=== PATIENT | male | born 1985 | race Caucasian/White ===

== ENCOUNTER 2016-07-18 08:45 | Emergency (ER) | payer BC ==
[2016-07-18 09:08] VITALS: BP 134/91
--- NOTE | 2016-07-18 10:21 | UC ---
Headache HPI - History Of Current Complaint Chief Complaint: Jose Luis Stated Complaint: HEADACHE Hx Obtained From: Patient Onset/Duration: Sudden Onset - awoke 3 days ago with subtle L sided headaceh: on L side of face, behind L eye, worse if bends forward to lift anything, had dark nasal drainage 1-2 days ago. headache is relieved by OTC ibuprofen. Has not gotten worse. no toothace. denies rececnt injury Currently Pain Is: Current Pain Scale(0-10)= - 3/10 pain Timing: Intermittent, Lasting: - variable amounts of time Character: Throbbing, Pressure Location of Headache: Other: - L side face and L side forehead Aggravating Factor: Other - bending forward, moving around Allevating Factors: Medication - OTC ibuprofen Associated Signs And Symptoms: Positive: Sinus Pressure. Negative: Dizziness, Nausea, Neck Pain, Neck Stiffness, Decreased LOC, Visual Changes - Risk Factors SAH Risk Factors: Negative Meningitis Risk Factors: Negative - Allergies/Home Medications Allergies/Adverse Reactions: Allergies Allergy/AdvReac Type Severity Reaction Status Date / Time No Known Allergies Allergy Verified 07/27/15 12:33 PMH/Surg Hx/FS Hx/Imm Hx Previously Healthy: Yes Endocrine History Of: Denies: Diabetes, Thyroid Disease Cardiovascular History Of: Denies: Cardiac Disorders, Hypertension Respiratory History Of: Denies: COPD, Asthma GI/ History Of: Denies: Ulcer - Surgical History Surgical History: Yes Surgery Procedure, Year, and Place: [place] Teeth extraction Left upper and lower - Family History Known Family History: Positive: Hypertension, Other - denies hx brain aneurysm or other neuro probs - Social History Occupation: Employed Full-time - grocery store Lives: With Family Alcohol Use: Occasionally Alcohol Amount: 4 drinks per week Substance Use Type: Marijuana Substance Use Comment - Amount & Last Used: OCCASIONALLY Smoking Status (MU): Former Smoker Type: Cigarettes Amount Used/How Often: 5 cigs per day When Did the Patient Quit Smoking/Using Tobacco: FALL 2015 - Immunization History Most Recent Influenza Vaccination: not this year Most Recent Tetanus Shot: up to date within 5 years Most Recent Pneumonia Vaccination: never Review of Systems Constitutional: Negative Skin: Negative Eyes: Negative ENT: Nasal Discharge, Other - facial pressure Respiratory: Negative Cardiovascular: Negative Gastrointestinal: Negative Neurovascular: Negative Musculoskeletal: Negative Neurological: Headache Psychological: Negative All Other Systems Reviewed And Are Negative: Yes Physical Exam Triage Information Reviewed: Yes Appearance: Well-Appearing, No Pain Distress, Well-Nourished Vital Signs: Initial Vital Signs Temp 98.7 F 07/18/16 09:02 Pulse 63 07/18/16 09:02 Resp 16 07/18/16 09:02 BP 134/91 07/18/16 09:02 Pulse Ox 99 07/18/16 09:02 Vital Signs Reviewed: Yes Eye Exam: Normal Eyes: Positive: Conjunctiva Clear. Negative: Discharge ENT: Positive: Nasal congestion, TMs normal, Other: - L sided PND-thick white Dental Exam: Normal Neck exam: Normal Neck: Positive: Supple, No Lymphadenopathy Respiratory Exam: Normal Respiratory: Positive: Lungs clear Cardiovascular Exam: Normal Cardiovascular: Positive: RRR, No Murmur, Pulses Normal Musculoskeletal Exam: Normal Neurological Exam: Normal Neurological: Positive: Alert Psychological Exam: Normal Skin Exam: Normal Skin: Negative: rashes Headache Course/Dx - Differential Dx/Diagnosis Differential Diagnosis/HQI/PQRI: Migraine, Sinus Headache, Subarachnoid Hemorrhage, Tension Headache, Viral Syndrome Provider Diagnoses: sinusitis Discharge - Discharge Plan Condition: Stable Disposition: HOME Prescriptions: Amoxicillin/Clavulanate TAB* [Augmentin TAB 875*] 875 mg PO BID #20 tab Patient Education Materials: Sinusitis (ED) Forms: *Work Release Referrals: No Primary Care Phys,NOPCP [Primary Care Provider] - Additional Instructions: Take augmentin as directed use ibuprofen 600-800mg every 6 hours as needed for pain (take with food) Report to ER if headache worsens or symptoms change at any time
== END 2016-07-18 10:35 | disposition home or self-care (01) ==
LOC: UCEAST 08:45
DX: J32.9 Chronic sinusitis, unspecified (principal); Z87.891 Personal history of nicotine dependence
CPT/HCPCS: 99212; G0463

== ENCOUNTER 2017-04-09 10:17 | Emergency (ER) | payer SELFPAY ==
[2017-04-09 10:39] VITALS: BP 126/73
[2017-04-09] MEDS ORDERED: Tetan/Diph/Pertus SYR(Tdap)* 0.5 ML SYR(BOOSTRIX) use SYR IM ONE (10:50)
--- NOTE | 2017-04-09 10:51 | UC ---
Laceration HPI - HPI Summary HPI Summary: 31 yo male lacerated his left thumb today at work he is right handed last Td about 8 yrs ago - History Of Current Complaint Chief Complaint: UCLaceration Stated Complaint: THUMB LACERATION Time Seen by Provider: 04/09/17 10:43 Hx Obtained From: Patient Laceration Location: Hand Mechanism Of Injury: Sharp Trauma Onset/Duration: Sudden Onset Severity: Mild Pain Intensity: 2 Pain Scale Used: 0-10 Numeric Aggravating Factors: Nothing Related History: Occupational Injury, Dominant Hand Right - Allergies/Home Medications Allergies/Adverse Reactions: Allergies Allergy/AdvReac Type Severity Reaction Status Date / Time No Known Allergies Allergy Verified 04/09/17 10:39 Home Medications: Home Medications Escitalopram (NF) [Lexapro 10 mg (NF)] 20 mg PO DAILY 04/09/17 [History Confirmed 04/09/17] hydrOXYzine HCL TAB* [Atarax 10 MG TAB*] 10 mg PO DAILY PRN 04/09/17 [History Confirmed 04/09/17] PMH/Surg Hx/FS Hx/Imm Hx Previously Healthy: Yes - Surgical History Surgical History: Yes Surgery Procedure, Year, and Place: [place] Teeth extraction Left upper and lower - Family History Known Family History: Positive: Hypertension, Other - denies hx brain aneurysm or other neuro probs - Social History Alcohol Use: Daily Alcohol Amount: 1-2 drinks daily Substance Use Type: Marijuana Substance Use Comment - Amount & Last Used: OCCASIONALLY Smoking Status (MU): Former Smoker Type: Cigarettes Amount Used/How Often: 5 cigs per day When Did the Patient Quit Smoking/Using Tobacco: FALL 2015 - Immunization History Most Recent Influenza Vaccination: NOT UTD Most Recent Tetanus Shot: 2008 Most Recent Pneumonia Vaccination: never Review of Systems Constitutional: Negative Skin: Negative Eyes: Negative ENT: Negative Respiratory: Negative Cardiovascular: Negative Gastrointestinal: Negative Genitourinary: Negative Motor: Negative Neurovascular: Negative Musculoskeletal: Negative Neurological: Negative Psychological: Negative Is Patient Immunocompromised?: No All Other Systems Reviewed And Are Negative: Yes Physical Exam Triage Information Reviewed: Yes Appearance: Well-Appearing, No Pain Distress, Well-Nourished Vital Signs: Initial Vital Signs Temp 97.7 F 04/09/17 10:34 Pulse 59 04/09/17 10:34 Resp 16 04/09/17 10:34 BP 126/73 11/17/17 10:34 Pulse Ox 98 04/09/17 10:34 Eyes: Positive: Conjunctiva Clear ENT: Positive: Hearing grossly normal. Negative: Nasal congestion, Nasal drainage, Trismus, Muffled voice, Hoarse voice Neck: Positive: Supple, Nontender Respiratory: Positive: Lungs clear, Normal breath sounds, No respiratory distress, No accessory muscle use Cardiovascular: Positive: RRR, No Murmur Abdominal Exam: Normal Musculoskeletal: Positive: ROM Intact, No Edema Neurological: Positive: Alert Skin Exam: Other - lac left thumb Laceration Repair - Laceration Repair 1 Description: Linear Laceration Size After Repair: Length (cm) - 1.1, Width (mm) - 1, Depth (mm) - 3 Modified For Repair: No Cleansing Completed Via Routine Prep: Yes Irrigation With Pressure Irrigation Device: Yes Closure Material: Skin Adhesive, SteriStrips Laceration Course/Dx - Differential Dx - Laceration/Wound Provider Diagnoses: laceration left thumb. skin adhesive and steri strip repair Discharge - Discharge Plan Condition: Stable Disposition: HOME Referrals: Aj Barahona NP [Primary Care Provider] - Images Hands: 1 - lac
[2017-04-09] MEDS ORDERED: Benzoin Compound STICK ONE (10:57)
== END 2017-04-09 11:12 | disposition home or self-care (01) ==
LOC: UCEAST 10:17
DX: S61.012A Laceration without foreign body of left thumb without damage to nail, initial encounter (principal); W45.8XXA Other foreign body or object entering through skin, initial encounter; Y93.9 Activity, unspecified; Y92.9 Unspecified place or not applicable; Y99.0 Civilian activity done for income or pay; Z23 Encounter for immunization; F12.90 Cannabis use, unspecified, uncomplicated; Z87.891 Personal history of nicotine dependence
CPT/HCPCS: 12001; 90471; 90715; 99211; 99212; G0463

== ENCOUNTER 2017-05-07 10:11 | Emergency (ER) | payer BC ==
[2017-05-07 12:26] VITALS: BP 120/82
--- NOTE | 2017-05-08 18:56 | UC ---
Throat Pain/Nasal Randal HPI - HPI Summary HPI Summary: 31 y/o presents to the urgent care c/o sore throat, mcbride, dry cough, mild nasal congestion since yesterday. Pt has taken cough drops to alleviate symptoms. Pain w/ swallowing is 4/10. Pt dneies fever, SOB, chest pain, abdominal pain, N/ V/D - History of Current Complaint Chief Complaint: UCRespiratory Stated Complaint: SORE THROAT RUNNY NOSE Time Seen by Provider: 05/07/17 12:29 Hx Obtained From: Patient Onset/Duration: Gradual Onset, Lasting Days - 1 day, Still Present Severity: Mild Pain Intensity: 4 Pain Scale Used: 0-10 Numeric Cough: Nonproductive Associated Signs & Symptoms: Positive: Dysphagia, Nasal Discharge - clear. Negative: Fever - Epiglottits Risk Factors Epiglottis Risk Factors: Negative - Allergies/Home Medications Allergies/Adverse Reactions: Allergies Allergy/AdvReac Type Severity Reaction Status Date / Time No Known Allergies Allergy Verified 05/07/17 10:36 PMH/Surg Hx/FS Hx/Imm Hx Previously Healthy: Yes Psychological History: Anxiety, Depression - Surgical History Surgical History: Yes Surgery Procedure, Year, and Place: [place] Teeth extraction Left upper and lower - Family History Known Family History: Positive: Hypertension - Social History Occupation: Employed Full-time Lives: With Family Alcohol Use: Daily Alcohol Amount: 1-2 drinks daily Substance Use Type: Marijuana Substance Use Comment - Amount & Last Used: OCCASIONALLY Smoking Status (MU): Former Smoker Type: Cigarettes Amount Used/How Often: 5 cigs per day When Did the Patient Quit Smoking/Using Tobacco: FALL 2015 - Immunization History Most Recent Influenza Vaccination: NOT UTD Most Recent Tetanus Shot: 2008 Most Recent Pneumonia Vaccination: never Review of Systems Constitutional: Negative Skin: Negative Eyes: Negative ENT: Sore Throat, Nasal Discharge - clear Respiratory: Cough - dry Cardiovascular: Negative Gastrointestinal: Negative Genitourinary: Negative Motor: Negative Neurovascular: Negative Musculoskeletal: Negative Neurological: Headache Psychological: Negative Is Patient Immunocompromised?: No All Other Systems Reviewed And Are Negative: Yes Physical Exam Triage Information Reviewed: Yes Vital Signs: Initial Vital Signs Temp 98 F 05/07/17 10:36 Pulse 75 05/07/17 10:36 Resp 18 05/07/17 10:36 Pulse Ox 100 05/07/17 10:36 - Additional Comments VITAL SIGNS: Reviewed. GENERAL: Patient is a well developed and nourished male who is sitting comfortable in the examining table. Patient is not in any acute respiratory distress. HEAD AND FACE: No signs of trauma. No ecchymosis, hematomas or skull depressions. No sinus tenderness. EYES: PERRLA, EOMI x 2, No injected conjunctiva, no nystagmus. No photophobia. EARS: Hearing grossly intact. Ear canals and tympanic membranes are within normal limits. MOUTH: Positive pharynx with erythema, no exudates,no palatal petechiae. B/L tonsillar enlargement with no exudate. Uvula in midline. NECK: Supple, trachea is midline, Positive anterior cervical lymphadenopathy, no JVD, no carotid bruit, no c-spine tenderness, neck with full ROM. No meningeal signs, no Kernig's or brudzinskis signs. CHEST: Symmetric, no tenderness at palpation LUNGS: Clear to auscultation bilaterally. No wheezing or crackles. CVS: Regular rate and rhythm, S1 and S2 present, no murmurs or gallops appreciated. ABDOMEN: Soft, non-tender. No signs of distention. No rebound no guarding, and no masses palpated. Bowel sounds are normal. EXTREMITIES: FROM in all major joints, no edema, no cyanosis or clubbing. NEURO: Alert and oriented x 3. No acute neurological deficits. Speech is normal and follows commands. SKIN: Dry and warm Throat Pain/Nasal Course/Dx - Course Course Of Treatment: 31 y/o presents to the urgent care c/o sore throat, mcbride, dry cough, mild nasal congestion since yesterday. Pt has taken cough drops to alleviate symptoms. Pain w/ swallowing is 4/10. Pt dneies fever, SOB, chest pain , abdominal pain, N/V/D. Hx obtained. Pt with pharyngitis on examination.Rapid strep ordered, result: negative. Viral pharyngitis.Pt Rx ibuprofen PO to alleviates symptoms of pain and swelling. Advised on hand washing to avoid spreading. Pt advised to rest, eat well and avoid strenuous exercise. If symptoms do not improve or worsen advised to return to the urgent care or f/u with her PCP for further evaluation and treatment. Pt understood and agreed - Differential Dx/Diagnosis Differential Diagnosis/HQI/PQRI: Influenza, Laryngitis, Mononucleosis, Otitis Media, Pharyngitis, Sinusitis, Tonsillitis, URI Provider Diagnoses: 1- Viral pharyngitis Discharge - Discharge Plan Condition: Stable Disposition: HOME Prescriptions: Ibuprofen TAB* [Motrin TAB* 800 MG] 800 mg PO Q6H PRN #20 tab PRN Reason: Sore Throat Omeprazole CAP* [Prilosec CAP* 20 MG] 20 mg PO DAILY #30 cap. Patient Education Materials: Pharyngitis (ED) Forms: *Work Release Referrals: No Primary Care Phys,NOPCP [Primary Care Provider] - Additional Instructions: 1-Please take ibuprofen PO q6-8hrs prn as instructed after meals to alleviate pain and swelling. Increase fluid intake, eat well, rest and avoid strenuous exercise 2- Take Omeprazole as directed to protect your stomach. 2-If symptoms do not improve or worsen please return to the urgent care or f/u with your PCP for further evaluation and treatment.
== END 2017-05-07 13:08 | disposition home or self-care (01) ==
LOC: UCEAST 10:11
DX: J02.8 Acute pharyngitis due to other specified organisms (principal); Z87.891 Personal history of nicotine dependence; Z72.89 Other problems related to lifestyle; F12.90 Cannabis use, unspecified, uncomplicated
CPT/HCPCS: 87651; 99211; G0463

== ENCOUNTER 2017-10-02 07:40 | Emergency (ER) | payer BC ==
[2017-10-02 07:51] VITALS: BP 132/78
--- NOTE | 2017-10-02 08:05 | UC ---
Tyson Travis Julia, scribed for Neel Roman MD on 10/02/17 at 0800 . Abdominal Pain Male HPI - HPI Summary HPI Summary: This patient is a 31 year old M [place] [facility] a chief complaint of sharp R flank and RLQ abdominal pain since yesterday. Patient rates the pain 8/ 10 in severity. Symptoms aggravated by movement. Patient denies nausea, vomiting , fever, and difficulty urinating. - History of Current Complaint Chief Complaint: UCAbdominalPain Stated Complaint: abdominal pain Time Seen by Provider: 10/02/17 07:44 Hx Obtained From: Patient Onset/Duration: Lasting Hours Timing: Constant Pain Intensity: 8 Pain Scale Used: 0-10 Numeric Location: Discrete At: RLQ, Other - R flank Character: Sharp Aggravating Factor(s): Movement Associated Signs And Symptoms: Positive: Back Pain. Negative: Fever, Urinary Symptoms, Vomiting - Allergies/Home Medications Allergies/Adverse Reactions: Allergies Allergy/AdvReac Type Severity Reaction Status Date / Time No Known Allergies Allergy Verified 10/02/17 07:52 PMH/Surg Hx/FS Hx/Imm Hx Previously Healthy: Yes - Surgical History Surgical History: Yes Surgery Procedure, Year, and Place: [place] Teeth extraction Left upper and lower - Family History Known Family History: Positive: Hypertension - Social History Alcohol Use: Daily Alcohol Amount: 1-2 drinks daily Substance Use Type: Marijuana Substance Use Comment - Amount & Last Used: daily Smoking Status (MU): Former Smoker Type: Cigarettes Amount Used/How Often: 5 cigs per day When Did the Patient Quit Smoking/Using Tobacco: FALL 2015 - Immunization History Most Recent Influenza Vaccination: NOT UTD Most Recent Tetanus Shot: 2008 Most Recent Pneumonia Vaccination: never Review of Systems Constitutional: Negative Gastrointestinal: Negative - nausea and vomiting, Abdominal Pain - RLQ, R Flank All Other Systems Reviewed And Are Negative: Yes Physical Exam - Summary Physical Exam Summary: VITAL SIGNS: Reviewed. GENERAL: Patient is a well-developed and nourished male who is lying comfortable in the stretcher. Patient is not in any acute respiratory distress. HEAD AND FACE: Normocephalic and atraumatic. EYES: PERRLA, EOMI x 2, No injected conjunctiva. EARS: Hearing grossly intact. Ear canals and tympanic membranes are WNL. MOUTH: Oropharynx within normal limits. NECK: Supple, trachea is midline, no adenopathy, no JVD. CHEST: Symmetric, no tenderness at palpation LUNGS: Clear to auscultation bilaterally. No wheezing or crackles. CVS: RRR, S1 and S2 present, no murmurs or gallops appreciated. ABDOMEN: Soft,. No signs of distention. Positive bowel sounds. No rebound no guarding, and no masses palpated. No abdominal bruit or pulsations. R CVA and RLQ tenderness EXTREMITIES: FROM in all major joints, no edema, no cyanosis or clubbing. NEURO: Alert and oriented x 3. No acute neurological deficits. Speech is normal. SKIN: Dry and warm Triage Information Reviewed: Yes Vital Signs: Initial Vital Signs Temp 98.1 F 10/02/17 07:43 Pulse 82 10/02/17 07:43 Resp 16 10/02/17 07:43 BP 132/78 10/02/17 07:43 Pulse Ox 98 10/02/17 07:43 Vital Signs Reviewed: Yes Abd Pain Male Course/Dx - Course Course Of Treatment: This patient is a 31 year old M presenting [place] [facility] a chief complaint of sharp R flank and RLQ abdominal pain since yesterday. Patient rates the pain 8/10 in severity. Symptoms aggravated by movement. Patient denies nausea, vomiting, fever, and difficulty urinating. Patient with right flank pain and right LQ tenderness. DDX kidney stone vs appendicitis. He was advised to go to the ED for further work up. He declined ambulance. He will drive himself to the ED. He understands the need of the further assessment. He is hemodynamically stable and A+O x 3. - Differential Dx/Clinical Impression Differential Diagnosis/HQI/PQRI: Appendicitis, Bowel Obstruction, Constipation, Renal Colic, Ureteral Stone, Urinary Tract Infection Provider Diagnoses: abdominal pain Discharge - Sign-Out/Discharge Documenting (check all that apply): Discharge/Admit/Transfer - Discharge Plan Condition: Stable Disposition: [facility] Patient Education Materials: Abdominal Pain (ED) Referrals: Aj Barahona, INSIGHTS ANALYST [Primary Care Provider] - Additional Instructions: Patient will be discharged to the ED for further assessment. Patient declined ambulance - Billing Disposition and Condition Condition: STABLE Disposition: EMTALA The documentation as recorded by the Tyson jean baptiste Julia accurately reflects the service I personally performed and the decisions made by me, Neel Roman MD.
== END 2017-10-02 08:00 | disposition home or self-care (01) ==
LOC: UCEAST 07:40
DX: R10.9 Unspecified abdominal pain (principal); R10.31 Right lower quadrant pain; Z87.891 Personal history of nicotine dependence
CPT/HCPCS: 99212; G0463

== ENCOUNTER → 2017-10-02 | Day surgery (SDC) | payer BC ==
[~2017-10-02] MED LIST: Atracurium* 10 MG/ML 10 ML VIAL ONE; Bupivacaine 0.25% SDV* 30 ML ONE; Dexamethasone IV* 4 MG/ML 1 ML (4 MG) ONE; DiMENhydriNATE IV* 50 MG/ML VIAL IV PUSH PRN; DiMENhydriNATE IV* 50 MG/ML VIAL ONE; HYDROcodone/ACETAMIN 5-325 MG* 1 TAB PO PRN; HYDROmorphone INJ* 1 MG/ML CARPUJECT SYRINGE IV PRN; Ibuprofen TAB* 600 MG PO PRN; Ketorolac INJ* 30 MG/ML 1 ML VIAL ONE; Midazolam* 1 MG/ML 5 ML VIAL (5 MG) ONE; Morphine INJ* 10 MG/ML 1 ML CARPUJECT IV ONE; Morphine VIAL* 4 MG/ML VIAL (1 ml vial) IV ONE; NS 0.9% 50 ML* 50 ML with ceFOXitin(*) 2 GM IVPB ONE; Naloxone* 0.4 MG/ML 1 ML VIAL IV PRN; Ondansetron INJ* 2 MG/ML VIAL IV PRN; Ondansetron ODT TAB* 4 MG PO ONE; Propofol* 10 MG/ML 20 ML BTL IV PUSH ONE; fentaNYL* 50 MCG/ML 2 ML VIAL (100 MCG VIAL) IV PRN; fentaNYL* 50 MCG/ML 2 ML VIAL (100 MCG VIAL) ONE; oxyCODONE TAB* 5 MG TAB PO PRN
[2017-10-02] MEDS: NS 0.9% 1000 ML* 2,000 ML IV ONE ×2 (09:26→13:08)
[2017-10-02 09:35] LABS: ABS Basophils 0 10^3/ul (0-0.2); ABS Eosinophils 0 10^3/ul (0-0.6); ABS Lymphocytes 1.4 10^3/ul (1.0-4.8); ABS Monocytes 0.8 10^3/ul (0-0.8); ABS Neutrophils 6.8 10^3/ul (1.5-7.7); ABS Nucleated RBC 0 10^3/ul; Eosinophil % 0.3 % (0-6); Hematocrit 45 % (42-52); Hemoglobin 15.4 g/dl (14.0-18.0); Lymphocyte % 15.5 % (25-47); Mean Corpuscular HGB Conc 35 g/dl (31-36); Mean Corpuscular Hemoglobin 30 pg (27-31); Mean Corpuscular Volume 85 fL (80-94); Mean Platelet Volume 8.5 um3 (7.4-10.4); Nucleated Red Blood Cells % 0; Platelet Count 175 10^3/ul (150-450); Red Blood Count 5.24 10^6/ul (4.0-5.4); Red Cell Distribution Width 13 % (10.5-15); White Blood Count 9.1 10^3/ul (3.5-10.8)
[2017-10-02 09:45] LABS: INR 1.02 (0.77-1.02)
[2017-10-02 09:53] LABS: EGFR Non-African American 110.3 (>60)
--- NOTE | 2017-10-02 10:18 | RAD ---
Indication: Right lower quadrant pain Graded compression sonography of the right lower quadrant was performed. There is a segment of the blind ending tubular structure measuring approximately 9 mm. There is some fluid noted and the possibility of appendicitis should BE considered. No free fluid is identified. The study is limited due to body habitus. IMPRESSION: There is suggestion of a blind ending tubular structure which may represent the tip of the appendix. This may represent appendicitis although only a segment of the appendix is visualized.
[2017-10-02 10:45] LABS: Urine Appearance Cloudy; Urine Blood Negative (Negative); Urine Color Amber; Urine Ketones Trace (Negative); Urine Protein 1+(30 mg/dL) (Negative); Urine Specific Gravity 1.028 (1.010-1.030); Urine Urobilinogen Negative (Negative)
--- NOTE | 2017-10-02 12:21 | HP ---
H&P (Free Text) History and Physical: Surgery H&P Asked by Dr. Burton to eevaluate a pt. with abd. pain. Mr. Garcia is a 31 y.o. m who reports he began to feel pain in the abd yesterday. The pain came on suddenly and felt like a cramp. It persisted throughout the day and night. He felt a little better this morning, but has found that the pain is noticeable with any movement. He has felt a little nauseated. He had chills last night. He had an episode of diarrhea yesterday, but no other bowel dysfunction. He has had no appetite. He has never had pain like this before. PMHx: denies Meds: stop zoloft 1 month ago. NKDA SH: neg. tob.; daily EtOH, neg. IVDA ROS: has been told he has an ulcer, but has not had a scope. FH: HTN PE: general: WDWN male in NAD Vital Signs 10/02/17 10/02/17 10/02/17 08:31 08:39 09:00 Temperature 98.7 F Pulse Rate 81 77 68 Respiratory 16 Rate Blood Pressure 141/79 141/92 (mmHg) O2 Sat by Pulse 96 96 97 Oximetry 10/02/17 10/02/17 10/02/17 09:09 09:12 09:39 Temperature Pulse Rate 87 62 Respiratory Rate Blood Pressure 131/81 124/75 (mmHg) O2 Sat by Pulse 96 96 98 Oximetry 10/02/17 10/02/17 10/02/17 10:09 10:10 10:39 Temperature Pulse Rate 68 62 80 Respiratory Rate Blood Pressure 126/71 122/72 (mmHg) O2 Sat by Pulse 99 98 98 Oximetry 10/02/17 10/02/17 10/02/17 10:41 11:00 11:10 Temperature 99.1 F Pulse Rate 65 70 Respiratory Rate Blood Pressure 117/70 (mmHg) O2 Sat by Pulse 97 98 Oximetry 10/02/17 10/02/17 10/02/17 11:39 12:00 12:09 Temperature Pulse Rate 84 75 72 Respiratory Rate Blood Pressure 117/79 133/83 (mmHg) O2 Sat by Pulse 97 98 98 Oximetry HEENT: anicteric sclerae, dry oral mucosa, neg. cervical adenopathy lungs: clear to ausc.; breathing causes pain in the RLQ heart: reg. without murmurs abd: good BS, soft, tender in RLQ with some guarding, no rebound ext: neg. cyanosis,edema, easily palp DPs bilateraly Laboratory Results - last 24 hr 10/02/17 10/02/17 10/02/17 09:23 09:23 09:23 WBC 9.1 RBC 5.24 Hgb 15.4 Hct 45 MCV 85 MCH 30 MCHC 35 RDW 13 Plt Count 175 MPV 8.5 Neut % (Auto) 74.9 Lymph % (Auto) 15.5 L Cloud % (Auto) 8.9 H Eos % (Auto) 0.3 Baso % (Auto) 0.4 Absolute Neuts (auto) 6.8 Absolute Lymphs (auto) 1.4 Absolute Monos (auto) 0.8 Absolute Eos (auto) 0 Absolute Basos (auto) 0 Absolute Nucleated RBC 0 Nucleated RBC % 0 INR (Anticoag Therapy) 1.02 Sodium 138 L Potassium 3.8 Chloride 105 Carbon Dioxide 27 Anion Gap 6 BUN 11 Creatinine 0.82 Est GFR ( Amer) 141.9 Est GFR (Non-Af Amer) 110.3 BUN/Creatinine Ratio 13.4 Glucose 109 H Lactic Acid Calcium 9.5 Total Bilirubin 0.80 AST 19 ALT 19 Alkaline Phosphatase 47 C-Reactive Protein 28.46 H Total Protein 7.4 Albumin 4.7 Globulin 2.7 Albumin/Globulin Ratio 1.7 Lipase 11 Urine Color Urine Appearance Urine pH Ur Specific [place] Urine Protein Urine Ketones Urine Blood Urine Nitrate Urine Bilirubin Urine Urobilinogen Ur Leukocyte Esterase Urine WBC (Auto) Urine RBC (Auto) Urine Bacteria Urine Glucose 10/02/17 10/02/17 09:23 10:33 WBC RBC Hgb Hct MCV MCH MCHC RDW Plt Count MPV Neut % (Auto) Lymph % (Auto) Cloud % (Auto) Eos % (Auto) Baso % (Auto) Absolute Neuts (auto) Absolute Lymphs (auto) Absolute Monos (auto) Absolute Eos (auto) Absolute Basos (auto) Absolute Nucleated RBC Nucleated RBC % INR (Anticoag Therapy) Sodium Potassium Chloride Carbon Dioxide Anion Gap BUN Creatinine Est GFR ( Amer) Est GFR (Non-Af Amer) BUN/Creatinine Ratio Glucose Lactic Acid 0.8 Calcium Total Bilirubin AST ALT Alkaline Phosphatase C-Reactive Protein Total Protein Albumin Globulin Albumin/Globulin Ratio Lipase Urine Color Susanne Urine Appearance Cloudy Urine pH 6.0 Ur Specific [place] 1.028 Urine Protein 1+(30 mg/dl) A Urine Ketones Trace A Urine Blood Negative Urine Nitrate Negative Urine Bilirubin Negative Urine Urobilinogen Negative Ur Leukocyte Esterase Negative Urine WBC (Auto) 2+(11-20/hpf) A Urine RBC (Auto) 2+(6-10/hpf) A Urine Bacteria Absent Urine Glucose Negative A/P: Probable appendicitis. Will proceed to OR. I have explained to him the nature of surgery, its risks, benefits, and alternatives. He understands and agrees to proceed. [email or web address]
--- NOTE | 2017-10-02 13:52 | ED ---
Héctor Travis Stephanie, scribed for Faheem Burton MD on 10/02/17 at 0907 . Abdominal Pain/Male - HPI Summary HPI Summary: The pt is a 31 y/o M presenting to the ED with c/o RLQ pain that began on at 08:00. Symptoms include lack of appetite, chills and loose stools (1x). He denies fever, testicular pain, hematuria and dysuria. The pt denies radiation of pain. Aggravating factors include movement, ambulation and deep breaths. He describes the pain as a pinch. The pt denies recent illness. His pain is rated as a 5 in severity. - History of Current Complaint Chief Complaint: EDAbdPain Stated Complaint: RT FLANK PAIN-SENT FROM Time Seen by Provider: 10/02/17 08:52 Hx Obtained From: Patient Onset/Duration: Gradual Onset, Lasting Days - 1, Still Present Timing: Constant Severity Currently: Moderate Pain Intensity: 5 Pain Scale Used: 0-10 Numeric Location: Discrete At: RLQ Radiates: No Character: Sharp Aggravating Factor(s): Movement, Deep Breaths, Other: - ambulation Alleviating Factor(s): Nothing Associated Signs And Symptoms: Positive: Decreased Appetite. Negative: Fever - Allergies/Home Medications Allergies/Adverse Reactions: Allergies Allergy/AdvReac Type Severity Reaction Status Date / Time No Known Allergies Allergy Verified 10/02/17 08:34 Home Medications: Home Medications NK [No Home Medications Reported] 10/02/17 [History Confirmed 10/02/17] PMH/Surg Hx/FS Hx/Imm Hx Endocrine/Hematology History: Denies: Hx Diabetes, Hx Thyroid Disease Cardiovascular History: Denies: Hx Hypertension Respiratory History: Denies: Hx Asthma, Hx Chronic Obstructive Pulmonary Disease (COPD) GI History: Denies: Hx Ulcer Sensory History: Denies: Hx Legally Blind EENT History: Denies: Hx Deafness - Surgical History Surgery Procedure, Year, and Place: [place] Teeth extraction Left upper and lower - Immunization History Date of Tetanus Vaccine: 09/13/12 Infectious Disease History: No Infectious Disease History: Denies: Hx Clostridium Difficile, Hx Hepatitis, Hx Human Immunodeficiency Virus (HIV), Hx of Known/Suspected MRSA, Hx Shingles, Hx Tuberculosis, Hx Known/ Suspected VRE, Hx Known/Suspected VRSA, History Other Infectious Disease, Traveled Outside the [place] in Last 30 Days - Family History Known Family History: Positive: Hypertension - Social History Occupation: Employed Full-time Lives: With Family Alcohol Use: Daily Alcohol Amount: 1-2 drinks daily Hx Substance Use: Yes Substance Use Type: Reports: Marijuana Substance Use Comment - Amount & Last Used: daily Hx Tobacco Use: Yes Smoking Status (MU): Former Smoker Type: Cigarettes Amount Used/How Often: 5 cigs per day Review of Systems Positive: Chills, Other - lack of appetite. Negative: Fever Positive: Abdominal Pain Genitourinary: Negative - testicular pain Negative: dysuria, hematuria All Other Systems Reviewed And Are Negative: Yes Physical Exam - Summary Physical Exam Summary: General: well-appearing, Mild pain distress Skin: warm, color reflects adequate perfusion, dry Head: normal Eyes: EOMI, LAURI ENT: normal Neck: supple, nontender Respiratory: CTA, breath sounds present Cardiovascular: RRR Abdomen: soft, mcburney's point tenderness Bowel: present Musculoskeletal: normal, strength/ROM intact Neurological: sensory/motor intact, A&O x3 Psychological: affect/mood appropriate Triage Information Reviewed: Yes Vital Signs On Initial Exam: Initial Vitals Temp Pulse Resp BP Pulse Ox 98.7 F 81 16 141/79 96 10/02/17 08:31 10/02/17 08:31 10/02/17 08:31 10/02/17 08:31 10/02/17 08:31 Vital Signs Reviewed: Yes Diagnostics - Vital Signs Vital Signs Temp Pulse Resp BP Pulse Ox 10/02/17 08:31 98.7 F 81 16 141/79 96 - Laboratory Lab Results: Lab Results 10/02/17 10/02/17 10/02/17 Range/Units 09:23 09:23 09:23 WBC 9.1 (3.5-10.8) 10^3/ul RBC 5.24 (4.0-5.4) 10^6/ul Hgb 15.4 (14.0-18.0) g/dl Hct 45 (42-52) % MCV 85 (80-94) fL MCH 30 (27-31) pg MCHC 35 (31-36) g/dl RDW 13 (10.5-15) % Plt Count 175 (150-450) 10^3/ul MPV 8.5 (7.4-10.4) um3 Neut % (Auto) 74.9 (38-83) % Lymph % (Auto) 15.5 L (25-47) % Cecil % (Auto) 8.9 H (0-7) % Eos % (Auto) 0.3 (0-6) % Baso % (Auto) 0.4 (0-2) % Absolute Neuts (auto) 6.8 (1.5-7.7) 10^3/ul Absolute Lymphs (auto) 1.4 (1.0-4.8) 10^3/ul Absolute Monos (auto) 0.8 (0-0.8) 10^3/ul Absolute Eos (auto) 0 (0-0.6) 10^3/ul Absolute Basos (auto) 0 (0-0.2) 10^3/ul Absolute Nucleated RBC 0 10^3/ul Nucleated RBC % 0 INR (Anticoag Therapy) 1.02 (0.77-1.02) Sodium 138 L (139-145) mmol/L Potassium 3.8 (3.5-5.0) mmol/L Chloride 105 (101-111) mmol/L Carbon Dioxide 27 (22-32) mmol/L Anion Gap 6 (2-11) mmol/L BUN 11 (6-24) mg/dL Creatinine 0.82 (0.67-1.17) mg/dL Est GFR ( Amer) 141.9 (>60) Est GFR (Non-Af Amer) 110.3 (>60) BUN/Creatinine Ratio 13.4 (8-20) Glucose 109 H (70-100) mg/dL Lactic Acid (0.5-2.0) mmol/L Calcium 9.5 (8.6-10.3) mg/dL Total Bilirubin 0.80 (0.2-1.0) mg/dL AST 19 (13-39) U/L ALT 19 (7-52) U/L Alkaline Phosphatase 47 (34-104) U/L C-Reactive Protein 28.46 H (< 5.00) mg/L Total Protein 7.4 (6.4-8.9) g/dL Albumin 4.7 (3.2-5.2) g/dL Globulin 2.7 (2-4) g/dL Albumin/Globulin Ratio 1.7 (1-3) Lipase 11 (11.0-82.0) U/L Urine Color Urine Appearance Urine pH (5-9) Ur Specific Trail (1.010-1.030) Urine Protein (Negative) Urine Ketones (Negative) Urine Blood (Negative) Urine Nitrate (Negative) Urine Bilirubin (Negative) Urine Urobilinogen (Negative) Ur Leukocyte Esterase (Negative) Urine WBC (Auto) (Absent) Urine RBC (Auto) (Absent) Urine Bacteria (Absent) Urine Glucose (Negative) 10/02/17 10/02/17 Range/Units 09:23 10:33 WBC (3.5-10.8) 10^3/ul RBC (4.0-5.4) 10^6/ul Hgb (14.0-18.0) g/dl Hct (42-52) % MCV (80-94) fL MCH (27-31) pg MCHC (31-36) g/dl RDW (10.5-15) % Plt Count (150-450) 10^3/ul MPV (7.4-10.4) um3 Neut % (Auto) (38-83) % Lymph % (Auto) (25-47) % Cecil % (Auto) (0-7) % Eos % (Auto) (0-6) % Baso % (Auto) (0-2) % Absolute Neuts (auto) (1.5-7.7) 10^3/ul Absolute Lymphs (auto) (1.0-4.8) 10^3/ul Absolute Monos (auto) (0-0.8) 10^3/ul Absolute Eos (auto) (0-0.6) 10^3/ul Absolute Basos (auto) (0-0.2) 10^3/ul Absolute Nucleated RBC 10^3/ul Nucleated RBC % INR (Anticoag Therapy) (0.77-1.02) Sodium (139-145) mmol/L Potassium (3.5-5.0) mmol/L Chloride (101-111) mmol/L Carbon Dioxide (22-32) mmol/L Anion Gap (2-11) mmol/L BUN (6-24) mg/dL Creatinine (0.67-1.17) mg/dL Est GFR ( Amer) (>60) Est GFR (Non-Af Amer) (>60) BUN/Creatinine Ratio (8-20) Glucose (70-100) mg/dL Lactic Acid 0.8 (0.5-2.0) mmol/L Calcium (8.6-10.3) mg/dL Total Bilirubin (0.2-1.0) mg/dL AST (13-39) U/L ALT (7-52) U/L Alkaline Phosphatase (34-104) U/L C-Reactive Protein (< 5.00) mg/L Total Protein (6.4-8.9) g/dL Albumin (3.2-5.2) g/dL Globulin (2-4) g/dL Albumin/Globulin Ratio (1-3) Lipase (11.0-82.0) U/L Urine Color Susanne Urine Appearance Cloudy Urine pH 6.0 (5-9) Ur Specific Trail 1.028 (1.010-1.030) Urine Protein 1+(30 mg/dl) A (Negative) Urine Ketones Trace A (Negative) Urine Blood Negative (Negative) Urine Nitrate Negative (Negative) Urine Bilirubin Negative (Negative) Urine Urobilinogen Negative (Negative) Ur Leukocyte Esterase Negative (Negative) Urine WBC (Auto) 2+(11-20/hpf) A (Absent) Urine RBC (Auto) 2+(6-10/hpf) A (Absent) Urine Bacteria Absent (Absent) Urine Glucose Negative (Negative) Result Diagrams: 10/02/17 09:23 18 09:23 Lab Statement: Any lab studies that have been ordered have been reviewed, and results considered in the medical decision making process. - Additional Comments Diagnostic Additional Comments: US appendix reveals: There is suggestion of a blind ending tubular structure which may represent the tip of the appendix. This may represent appendicitis although only a segment of the appendix is visualized. ED physician has reviewed this report. Re-Evaluation - Re-Evaluation First Eval Re-Evaluation Time: 13:15 Change: Unchanged - ED physician discussed plan of admission with the pt and the pt understands and agrees. Abdominal Pain Fem Course/Dx - Course Course Of Treatment: DISCUSSED RESULTS WITH THE PATIENT AND SURGERY, DR BAUMAN. DR BAUMAN SAW PATIENT IN ED AND ADMITTED THE PATIENT. - Diagnoses Provider Diagnoses: Acute appendicitis - Provider Notifications Discussed Care Of Patient With: Mag Bauman Time Discussed With Above Provider: 10:35 Instructed by Provider To: Admit As Inpatient Discharge - Sign-Out/Discharge Documenting (check all that apply): Discharge/Admit/Transfer - Admit - Discharge Plan Condition: Stable Disposition: ADMITTED TO [facility] Referrals: Aj Barahona NP [Primary Care Provider] - - Billing Disposition and Condition Condition: STABLE Disposition: [facility] [place] The documentation as recorded by the Héctor jean baptiste Stephanie accurately reflects the service I personally performed and the decisions made by me, Faheem Burton MD.
--- NOTE | 2017-10-02 15:05 | BRIEFOPN ---
Brief Operative Note - Surgery Procedures: Procedures CLOSURE SKIN & SUBCUTANEOUS NEC (09/13/12) INJECT/INFUSE NEC (09/13/12) INSERT INDWELLING CATH (02/02/02) 10/02/17 Op Note (dictated) Pre-op dx: appendicitis Post-op dx: same Procedure: Laparoscopic appendectomy Surgeon: Mitul Asst: none Anesth: general EBL: 25 cc Complications: none SCDs on during surgery Abx: given pre-op The pt. tolerated the procedure well and was transferred to in a stable condition. CLFoster
[2017-10-02 15:47] VITALS: BP 135/82
--- NOTE | 2017-10-02 22:41 | OP ---
CC: [facility]; Dr. Daily OPERATIVE REPORT: DATE OF OPERATION: 10/02/17 DATE OF : 87 SURGEON: Mag Bauman M.D. SORTING MACHINE OPERATOR: None. PRE-OP DIAGNOSIS: Appendicitis. POST-OP DIAGNOSIS: Appendicitis. OPERATIVE PROCEDURE: Laparoscopic appendectomy. INDICATIONS: The patient is a 31-year-old male, who presented to the emergency room with signs and s ymptoms consistent with appendicitis prompting the plan for surgical intervention. DESCRIPTION OF PROCEDURE: He was brought to the operating room, placed on the OR table in supine pos ition, and given general anesthesia. The abdomen was prepped and draped in the usual sterile fashion . After infiltrating with local anesthetic, an incision was made in the infraumbilical area and subc utaneous tissue was divided bluntly. The fascia was grasped and incised, and a 0 Vicryl stitch was p laced on either side of the fascial incision. A trocar was inserted and the abdomen was insufflated. Then under direct visualization, suprapubic and left flank port were placed after infiltrating with local anesthetic. Brief inspection of the abdomen revealed no obvious abnormalities other than in t he right lower quadrant where the appendix was identified lateral to the cecum and noted to be inflam ed with some minimal fibrinopurulent exudate on the surface. It was grasped and noted to have some a ttachments to the lateral sidewall. These were taken down bluntly and then the base of the appendix was cleared and an EndoGIA stapler was fired across the base of the appendix. A second firing of the EndoGIA was fired across the mesoappendix. The appendix was placed in an EndoCatch bag and withdraw n from the abdomen through the infraumbilical port site. The liver and gallbladder were noted to be normal. The stomach was noted to be normal. The small and large intestines that were seen appeared normal. Upon inspecting the right lower quadrant, there was noted to be some blood. After irrigatin g and suctioning, the bleeding appeared to be coming from the attachment to the lateral sidewall. Th is was cauterized with good effect and all the irrigation fluid was then evacuated and the ports were then withdrawn under direct visualization. The previously placed 0 Vicryl was used to close the fas dany of the infraumbilical port site and 4-0 Monocryl was used to close the skin of all incisions. St leigha-Strips and a dry sterile dressings were applied. All sponge and instrument counts were correct. The patient tolerated the procedure well and was transferred to Recovery in a stable condition. [id number]/[facility] #: [id number]
== END | disposition home or self-care (01) ==
LOC: ED 08:25 → AA 14:36 → UNDOADMOB 14:36 → SDS 16:23
PROVIDERS: ATTEND Surgery
DX: K35.80 Unspecified acute appendicitis (principal); R10.31 Right lower quadrant pain; Z87.891 Personal history of nicotine dependence
CPT/HCPCS: 36415; 76705; 80053; 81003; 81015; 83605; 83690; 85025; 85610; 86140; 87086; 88304; 99284; A9270-GY; C1776; J0694; J1100; J1240; J1885; J2250; J2270; J2704; J3010

== ENCOUNTER 2018-05-26 13:01 | Emergency (ER) | payer BC ==
[2018-05-26 13:30] VITALS: BP 151/110
--- NOTE | 2018-05-26 14:46 | UC ---
Hip/Pelvis Pain - HPI Summary HPI Summary: 32-year-old male comes in with chief complaint of left hip pain. Pain is off for several years. Physical is in the left hip joint. Worse with twisting turning bending. Does the pain radiates up into the buttock. Pain does not radiate down the leg. No problems with urination or bowels. he has had an appendectomy no prior abdominal surgeries. No fevers or chills feels well otherwise. Ibuprofen helps briefly. Activity makes it worse. - History Of Current Complaint Chief Complaint: UCLowerExtremity Stated Complaint: L HIP COMPLAINT Time Seen by Provider: 05/26/18 13:25 Pain Intensity: 6 - Allergies/Home Medications Allergies/Adverse Reactions: Allergies Allergy/AdvReac Type Severity Reaction Status Date / Time No Known Allergies Allergy Verified 05/26/18 13:30 Home Medications: Home Medications Escitalopram Oxalate [Lexapro 20 mg] 20 mg PO DAILY 05/26/18 [History Confirmed 05/26/18] PMH/Surg Hx/FS Hx/Imm Hx Previously Healthy: Yes - Surgical History Surgical History: Yes Surgery Procedure, Year, and Place: [place] Teeth extraction Left upper and lower ,appy - Family History Known Family History: Positive: Hypertension - Social History Alcohol Use: Weekly Alcohol Amount: 1-2 drinks daily Substance Use Type: Marijuana Substance Use Comment - Amount & Last Used: occasional Smoking Status (MU): Former Smoker Type: Cigarettes Amount Used/How Often: 5 cigs per day When Did the Patient Quit Smoking/Using Tobacco: FALL 2015 - Immunization History Most Recent Influenza Vaccination: NOT UTD Most Recent Tetanus Shot: 2008 Most Recent Pneumonia Vaccination: never Review of Systems All Other Systems Reviewed And Are Negative: Yes Constitutional: Positive: Negative Skin: Positive: Negative Eyes: Positive: Negative ENT: Positive: Negative Respiratory: Positive: Negative Cardiovascular: Positive: Negative Gastrointestinal: Positive: Negative Motor: Positive: Negative Neurovascular: Positive: Negative Musculoskeletal: Positive: Other: - Minimal tenderness to palpation at the left hip joint. Hip has good range of motion. Abdomen is soft and nontender positive bowel sounds. I do not palpate a hernia. Neurological: Positive: Negative Psychological: Positive: Negative Is Patient Immunocompromised?: No Physical Exam Triage Information Reviewed: Yes Appearance: Well-Appearing, Well-Nourished, Pain Distress - MILD WITH ROM OF RT HIP Vital Signs: Initial Vital Signs Temp 99.3 F 05/26/18 13:26 Pulse 83 05/26/18 13:26 Resp 18 05/26/18 13:26 BP 151/110 05/26/18 13:26 Pulse Ox 100 05/26/18 13:26 Vital Signs Reviewed: Yes Eye Exam: Normal Eyes: Positive: Conjunctiva Clear Neck exam: Normal Neck: Positive: Supple Respiratory: Positive: Lungs clear, Normal breath sounds, No respiratory distress Cardiovascular: Positive: RRR Abdomen Description: Positive: Nontender, Soft. Negative: CVA Tenderness (R), CVA Tenderness (L) Musculoskeletal: Positive: Other: - Minimal tenderness to palpation at the left hip joint. Hip has good range of motion. Abdomen is soft and nontender positive bowel sounds. I do not palpate a hernia. Neurological Exam: Normal Neurological: Positive: Alert, Muscle Tone Normal Psychological Exam: Normal Psychological: Positive: Age Appropriate Behavior Skin Exam: Normal Hip Injury Course/Dx - Course Course Of Treatment: Order Information: HIP LEFT 2 VIEWS AND PELVIS. Accession Number: [id number]. CPT: 57744. HISTORY: LEFT HIP PAIN. COMPARISONS: None. VIEWS: 3 , Frontal view of the pelvis with frontal and frog-leg views of the left hip. FINDINGS: BONE DENSITY: Normal. BONES: There is no displaced fracture. There is a cam deformity of the left femoral neck. JOINTS: There is no arthropathy. ALIGNMENT: There is no dislocation. SOFT TISSUES: Unremarkable. OTHER FINDINGS: None. IMPRESSION: CAM DEFORMITY OF THE LEFT FEMORAL NECK WHICH CAN BE ASSOCIATED WITH ACETABULAR IMPINGEMENT. SYNDROME IN THE CORRECT CLINICAL SETTING. . <Electronically signed by Darian Lee MD in OV> 05/26/18 1430. Order Information: ABDOMEN LIMITED. Accession Number: [id number]. CPT: 99182. Indication: Left hip pain, evaluate for left inguinal or femoral hernia. Real-time sonography of the left inguinal area demonstrates no evidence of hernia. There. may be a small joint effusion noted. IMPRESSION: No inguinal hernia is identified. . <Electronically signed by Marita Tse MD in OV> 05/26/18 1424. I discussed the x-rays and the ultrasound with the patient. The plan is to follow-up with sports medicine. - Differential Dx/Diagnosis Provider Diagnosis: Left hip pain, Femoroacetabular impingement of left hip Discharge - Sign-Out/Discharge Documenting (check all that apply): Patient Departure All imaging exams completed and their final reports reviewed: Yes - Discharge Plan Condition: Stable Disposition: HOME Patient Education Materials: Hip Pain (ED) Referrals: Aj Barahona NP [Primary Care Provider] - Brice Puga [Medical Doctor] - Shaila Wallace MD [Medical Doctor] - Madhia Retana MD [Medical Doctor] - Additional Instructions: FOLLOW UP WITH SPORTS MEDICINE OR ORTHOPEDICS. GET RECHECKED FOR ANY WORSENING OF YOUR CONDITION OR QUESTIONS OR CONCERNS. - Billing Disposition and Condition Condition: STABLE Disposition: Home
== END 2018-05-26 15:10 | disposition home or self-care (01) ==
LOC: UCEAST 13:01
DX: M25.852 Other specified joint disorders, left hip (principal); Z87.891 Personal history of nicotine dependence
CPT/HCPCS: 76705; 99201; 99211; G0463

== ENCOUNTER 2018-10-08 07:13 | Emergency (ER) | payer BC ==
--- NOTE | 2018-10-08 07:19 | UC ---
Throat Pain/Nasal Randal HPI - HPI Summary HPI Summary: CHIEF COMPLAINT and HPI: This is a healthy 32-year-old white male who complains of sore throat, 10/31, for one day. He denies significant change in voice or inability to handle his secretions. He denies fever. Description of Pain: Location: throat Radiation: none VITAL SIGNS & SaO2 REVIEWED. Within normal limits unless noted here. 130/R there are no chair86 NURSES NOTE REVIEWED. Sore throat since yesterday evening. No cough. No fever/ chills. No otc meds taken. - History of Current Complaint Stated Complaint: SORE THROAT Time Seen by Provider: 10/08/18 07:17 - Allergies/Home Medications Allergies/Adverse Reactions: Allergies Allergy/AdvReac Type Severity Reaction Status Date / Time No Known Allergies Allergy Verified 10/08/18 07:20 PMH/Surg Hx/FS Hx/Imm Hx - Additional Past Medical History Additional PMH: PAST MEDICAL HISTORY- anxiety, on Lexapro. CHRONIC and RECURRENT HEALTH PROBLEM LIST REVIEWED. Information relevant to present complaint: Previous sore throats. VISIT HISTORY REVIEWED: Spleen injury in the past MEDICATIONS & ALLERGIES REVIEWED. HYPERTENSION STATUS: Not on antihypertensive medication. FAMILY HISTORY: Positive for: cardiovascular disease SOCIAL HISTORY: Now non-smoker, and works in a grocery store, lives with his , no one in his home environment is sick. Previously Healthy: Yes - Surgical History Surgical History: Yes Surgery Procedure, Year, and Place: [place] Teeth extraction Left upper and lower ,appy - Family History Known Family History: Positive: Hypertension - Social History Alcohol Use: Weekly Alcohol Amount: 1-2 drinks daily Substance Use Type: Marijuana Substance Use Comment - Amount & Last Used: occasional Smoking Status (MU): Former Smoker Type: Cigarettes Amount Used/How Often: 5 cigs per day When Did the Patient Quit Smoking/Using Tobacco: FALL 2015 - Immunization History Most Recent Influenza Vaccination: NOT UTD Most Recent Tetanus Shot: 2008 Most Recent Pneumonia Vaccination: never Review of Systems All Other Systems Reviewed And Are Negative: Yes Constitutional: Positive: Negative, Fever Skin: Positive: Negative Eyes: Positive: Negative ENT: Positive: Sore Throat Respiratory: Positive: Negative. Negative: Shortness Of Breath Cardiovascular: Positive: Negative. Negative: Palpitations Gastrointestinal: Positive: Negative. Negative: Abdominal Pain Is Patient Immunocompromised?: No Physical Exam - Summary Physical Exam Summary: Appearance: The patient is well-appearing, is in no pain or distress, and is well-nourished. Eyes: Conjunctiva are clear. Pupils are equal and reactive to light and accommodation. Extra ocular muscle movement is intact. ENT: The hearing is grossly normal, and the TMs are normal. There is no muffled or hoarse voice. No stridor. Examination of the patient's throat shows posterior lymph patches with erythema. There is no exudate. The throat is open. There is no swelling. There is no anterior adenopathy. Neck: The neck is supple and there is no lymphadenopathy. Respiratory: The chest is non-tender to palpation and without crepitus. The lungs are clear, there are normal breath sounds, and there is no respiratory distress. No wheezes, rales or rhonchi. Cardiovascular: Heart sounds reveal a regular rate and rhythm. There are no clicks, rubs or murmurs. There are no carotid bruits or thrills. Circulation is grossly intact. Abdomen: The abdomen is soft and nontender. There is no organomegaly. Bowel sounds are present and within normal limits. No point tenderness at McBurneys point. No CVA tenderness. Musculoskeletal: Strength is intact. The patient moves all extremities. Neurological: The patient is alert. Motor and sensory are examination grossly intact. Speech is normal. Psychological: The patient displays age appropriate behavior, and is conversant. GCS=15. Skin: Negative for rashes. Throat Pain/Nasal Course/Dx - Course Course Of Treatment: MEDICAL DECISION MAKING and PLAN: Patient with a sore throat for 1 day. He is rapid strep negative. There is no evidence that he has something more serious than a sore throat. Specifically, he is handling secretions and his voice is normal. My diagnosis is viral sore throat. I've given him instructions to deal with his symptoms and I will give him 2 days of dexamethasone and a viscous lidocaine gargle. I have told him to recheck his blood pressure over the next 1-3 months. MEDICATIONS REVIEWED. HYPERTENSION STATUS REVIEWED WITH PATIENT IF blood pressure is above 120/80. Patient is urgent/emergent causing transient blood pressure elevation. - Differential Dx/Diagnosis Differential Diagnosis/HQI/PQRI: Laryngitis, Mononucleosis, Peritonsillar Abscess, Pharyngitis Provider Diagnosis: Sore throat (viral) Discharge - Sign-Out/Discharge Documenting (check all that apply): Patient Departure All imaging exams completed and their final reports reviewed: No Studies - Discharge Plan Condition: Stable Disposition: HOME Prescriptions: Dexamethasone TAB* [Decadron TAB*] 4 mg PO DAILY #4 tab MDD 2 Lidocaine 2% VISCOUS* 5 ml MT BID #1 btl MDD twice a day Referrals: Aj Barahona, [employer] MACHINE TENDER [Primary Care Provider] - Additional Instructions: WE DISCUSSED: PLEASE SEEK CARE AT THE EMERGENCY DEPARTMENT IF SYMPTOMS WORSEN OR IF NEW SYMPTOMS DEVELOP. FOLLOW UP WITH YOUR PRIMARY CARE PHYSICIAN IF CONDITION CONTINUES BEYOND 3 DAYS WITHOUT IMPROVEMENT. YOUR DIAGNOSIS IS: Viral sore throat YOUR PRESCRIPTION RECOMMENDATION IS: dexamethasone for 2 days, and viscous lidocaine gargle. OTHER INSTRUCTIONS: Hypertension Discharge Instructions: Your blood pressure reading today was 130/86 , indicating HYPERTENSION. Follow- up with your primary care provider within 4 weeks for blood pressure check and appropriate recommendations and treatment, as needed. FOR PAIN AND/OR SLEEP: For pain: Ibuprofen (Motrin and other brand names) 400-600mg PLUS acetaminophen (Tylenol and other brand names) 500mg - 1000mg every 8 hours. DRINK LOTS OF WARM FLUIDS WARM WATER GARGLES, WITH TSP OF SALT PER 8 OUNCES OF WATER, GARGLE FOR A FEW SECONDS AND SPIT OUT; GARGLE AND SPIT OUT, EVERY THREE HOURS. USE LOZENGES TO KEEP THROAT PROTECTED. Work note has been written. Call jack Mejia at [facility] for physician referral. - Billing Disposition and Condition Condition: STABLE Disposition: Home
[2018-10-08 07:24] VITALS: BP 130/86
== END 2018-10-08 08:03 | disposition home or self-care (01) ==
LOC: UCEAST 07:13
DX: J02.8 Acute pharyngitis due to other specified organisms (principal); F41.9 Anxiety disorder, unspecified; Z87.891 Personal history of nicotine dependence
CPT/HCPCS: 87651; 99212; G0463